=== PATIENT | female | born 1955 | race Caucasian/White ===

== ENCOUNTER 2016-12-13 10:00 | Observation (INO) | payer OTHER ==
[2016-12-13 10:42] LABS: % IMMATURE GRANULYOCYTES 0.3 % (0.0-1.1); ABSOLUTE IMMATURE GRANULOCYTES 0.02 10^3/uL (0.00-0.10); ADD DIFF? NO; ADD MORPH? NO; ADD SCAN? NO; ATYPICAL LYMPHOCYTE FLAG 10 (0-99); FRAGMENT RBC FLAG 0 (0-99); HEMATOCRIT 45.7 % (38.0-47.0); HEMOGLOBIN 14.8 g/dL (12.6-16.3); LEFT SHIFT FLG 0 (0-99); LIPEMIA HEMOLYSIS FLAG 80 (0-99); MEAN CELL HEMOGLOBIN 28.7 pg (27.9-34.1); MEAN CELL HEMOGLOBIN CONCENTR. 32.4 g/dL (32.4-36.7); MEAN CELL VOLUME 88.6 fL (81.5-99.8); MEAN PLATELET VOLUME 11.4 fL (8.7-11.7); PLATELET CLUMPS FLAG 10 (0-99); PLATELET COUNT 280 10^3/uL (150-400); RED BLOOD CELL COUNT 5.16 10^6/uL (4.18-5.33); RED CELL DISTRIBUTION WIDTH 13.1 % (11.5-15.2)
--- NOTE | 2016-12-13 10:42 | EDPHY ---
H & P Stated Complaint: cp /l arm x 5 days/traveling HPI/ROS: CHIEF COMPLAINT: Chest Pain HISTORY OF PRESENT ILLNESS: Patient complains of left-sided chest pain. This originally started on while traveling to [place]. Radiates into the back of the left arm. He has been colic T but never fully resolved until yesterday. Priw-me-ornnmybx pain. The pain returned this morning and has worsened. Associated with some shortness of breath. No change in her existing lower extremity edema. No lower extremity erythema. He does have a history of PE in 2010. No abdominal urinary complaints. She did have a preceding upper respiratory infection that she describes as a cough, runny nose and congestion. This has nearly resolved but not completely. No fever. She does report a heart catheterization of the past few years with Dr. Mtz. PRIOR CARDIAC WORKUP: 2 years ago. History of long QT syndrome and congestive heart failure. History of recurrent pericarditis REVIEW OF SYSTEMS: Ten systems reviewed and are negative unless otherwise noted in the HPI EXAMINATION: General Appearance: Alert, no distress Head: normocephalic, atraumatic Eyes: Pupils equal and round, no conjunctival pallor or injection ENT, Mouth: Mucous membranes moist Neck: Normal inspection, supple, non-tender Respiratory: Lungs are clear to auscultation Cardiovascular: Regular rate and rhythm Gastrointestinal: Abdomen is soft and nontender Back: non-tender, no bony abnormalities Neurological: A&O, nonfocal, normal gait Skin: Warm and dry, no rash Extremities: Nontender, no pedal edema Psychiatric: Mood and affect normal DIFFERENTIAL DIAGNOSES: Including but not limited to in no particular order: Pericarditis, Acute Chest Pain, ACS, Stable Angina, Pneumonia, PE, duodenitis, gastritis, esophagitis, GERD MDM: 10:45 a.m. Chest pain of nearly 5 days duration. This started while flying to [place]. The pain radiates in the left arm. She has a history of PEs in 2010. She also has a preceding viral illness. I suspect this is more pericarditis then other differential diagnoses. I have ordered CT scan of the chest as this is her preference and with her history I do not feel this is unreasonable. She is in no acute distress. Vital signs are stable. 12:[address] Reed[address] scan of the chest reveals no acute findings. There are chronic changes stable from 2016. Laboratory studies are all within normal limits. No evidence of PE. Negative troponin. Given the patient's duration of symptoms we have ruled her out for acute coronary syndrome. She does have a viral illness that preceded this, suggesting this may be a pericarditis. I have re-evaluated the patient, and she is no acute distress. She reports a history of frequent pericarditis in the past. This does feel the same to her. She is unable to take NSAIDs or colchicine. She also has a history of long QT and congestive heart failure. I will discuss the case with and have the patient evaluated by Dr. Chong. 12:20 p.m. Case discussed with Dr. Chong. He agrees the best scenario for the patient is observation with serial troponins. Patient is agreeable with this plan. 1:00 p.m. I discussed the case with hospitalist. Patient will be admitted to Dr. Velasquez for observation status for serial troponins. She is admitted in stable condition to [facility]. EKG: Interpreted by Dr. Chong SUPERVISION: Patient was evaluated in conjunction with the supervising physician. Please see their note for details. Source: Patient - Personal History Current Tetanus/Diphtheria Vaccine: Yes Tetanus Vaccine Date: 2010 - Medical/Surgical History Hx Asthma: No Hx Chronic Respiratory Disease: No Hx Diabetes: No Hx Cardiac Disease: Yes Hx Renal Disease: Yes Hx Cirrhosis: No Hx Alcoholism: No Hx HIV/AIDS: No Hx Splenectomy or Spleen Trauma: No Other PMH: PROLONGER QT SYNDROME with sympathetic nerve ablation, BILATERAL PE'S , HYSTERECTOMY, CHOLECYSTECTOMY, TONSILLECTOMY, RIGHT Total Knee Replacement - Social History Smoking Status: Never smoked Constitutional: Initial Vital Signs Temperature (C) 97.7 F 12/13/16 10:03 Heart Rate 72 12/13/16 10:03 Respiratory Rate 20 12/13/16 10:03 Blood Pressure 164/87 H 12/13/16 10:03 O2 Sat (%) 95 12/13/16 10:03 O2 Delivery Mode Room Air Allergies/Adverse Reactions: ezetimibe [From Zetia] Allergy (Severe, Verified 12/13/16 10:02) Other-Enter Comments tolmetin sodium [From Tolectin] Allergy (Severe, Verified 12/13/16 10:02) clindamycin Allergy (Intermediate, Verified 12/13/16 10:02) Hives latex Allergy (Intermediate, Verified 12/13/16 10:02) Itching naproxen [From Naprosyn] Allergy (Intermediate, Verified 12/13/16 10:02) Other-Enter Comments niacin Allergy (Intermediate, Verified 12/13/16 10:02) Rash Penicillins Allergy (Intermediate, Verified 12/13/16 10:02) Rash Mppkfbn-Hxc-Jwj Reductase Inhibitor Allergy (Intermediate, Verified 12/13/16 10: 02) Other-Enter Comments cefaclor [From Ceclor] Allergy (Mild, Verified 12/13/16 10:02) Rash hydrocodone bitartrate [From Vicodin] Allergy (Mild, Verified 12/13/16 10:02) Rash indomethacin [From Indocin] Allergy (Mild, Verified 12/13/16 10:02) Other-Enter Comments indomethacin sodium [From Indocin] Allergy (Mild, Verified 12/13/16 10:02) Other-Enter Comments levofloxacin [From Levaquin] Allergy (Mild, Verified 12/13/16 10:02) Itching plastic tape Allergy (Mild, Uncoded 10/07/14 07:34) Rash Home Medications: Medication Instructions Recorded Docusate Sodium [Colace 100 MG (*)] 100 mg PO DAILY 12/18/12 ESOMEPRAZOLE MAG TRIHYDRATE 40 mg PO DAILY 12/18/12 [NEXIUM] Levothyroxine [Synthroid 100 mcg 100 mcg PO DAILY06 12/18/12 (*)] Valsartan [Diovan (*)] 80 mg PO DAILY 12/18/12 HYDROmorphone HCL [Dilaudid 2 mg 2 mg PO Q4-6PRN PRN 10/28/13 (*)] Spironolactone [Aldactone] 50 mg PO DAILY 10/28/13 valACYclovir [Valtrex (*)] 1,000 mg PO DAILY 09/29/14 Aspirin [Aspirin 81mg (*)] 81 mg PO DAILY 11/25/14 Furosemide [Lasix 40 MG (*)] 40 mg PO DAILY 12/31/15 Furosemide [Lasix 40 MG (*)] 40 mg PO MWF@21 04/01/16 Herbals/Supplements -Info Only 1 ea PO DAILY 04/01/16 Medical Decision Making - Diagnostics Imaging Results: Imaging Impressions Chest/Thorax CTA 12/13/16 10:42 Impression: 1. No visible pulmonary embolus. 2. Mild cardiomegaly and coronary artery atherosclerosis. 3. Stable benign 6 mm right lung nodule. 4. Additional findings as above. Findings discussed with Jackson Jimenez PA-C on December 13, 2016 at 12:10 p.m. - Data Points Laboratory Results: Laboratory Results 12/13/16 10:31 12/13/16 10:31 12/13/16 12/13/16 12/13/16 10:31 10:31 10:31 WBC 5.84 10^3/uL 10^3/uL (3.80-9.50) RBC 5.16 10^6/uL 10^6/uL (4.18-5.33) Hgb 14.8 g/dL g/dL (12.6-16.3) Hct 45.7 % % (38.0-47.0) MCV 88.6 fL fL (81.5-99.8) MCH 28.7 pg pg (27.9-34.1) MCHC 32.4 g/dL g/dL (32.4-36.7) RDW 13.1 % % (11.5-15.2) Plt Count 280 10^3/uL 10^3/uL (150-400) MPV 11.4 fL fL (8.7-11.7) Neut % (Auto) 56.6 % % (39.3-74.2) Lymph % (Auto) 33.0 % % (15.0-45.0) Gregory % (Auto) 7.5 % % (4.5-13.0) Eos % (Auto) 1.9 % % (0.6-7.6) Baso % (Auto) 0.7 % % (0.3-1.7) Nucleat RBC Rel Count 0.0 % % (0.0-0.2) Absolute Neuts (auto) 3.30 10^3/uL 10^3/uL (1.70-6.50) Absolute Lymphs (auto) 1.93 10^3/uL 10^3/uL (1.00-3.00) Absolute Monos (auto) 0.44 10^3/uL 10^3/uL (0.30-0.80) Absolute Eos (auto) 0.11 10^3/uL 10^3/uL (0.03-0.40) Absolute Basos (auto) 0.04 10^3/uL 10^3/uL (0.02-0.10) Absolute Nucleated RBC 0.00 10^3/uL 10^3/uL (0-0.01) Immature Gran % 0.3 % % (0.0-1.1) Immature Gran # 0.02 10^3/uL 10^3/uL (0.00-0.10) PT 12.7 SEC SEC (12.0-15.0) INR 0.96 (0.83-1.16) APTT 30.3 SEC SEC (23.0-38.0) Sodium 139 mEq/L mEq/L (134-144) Potassium 4.3 mEq/L mEq/L (3.5-5.2) Chloride 103 mEq/L mEq/L (97-110) Carbon Dioxide 25 mEq/l mEq/l (22-31) Anion Gap 11 mEq/L mEq/L (8-16) BUN 15 mg/dL mg/dL (7-23) Creatinine 0.7 mg/dL mg/dL (0.6-1.0) Estimated GFR > 60 Glucose 120 mg/dL H mg/dL (70-100) Calcium 9.6 mg/dL mg/dL (8.5-10.4) Total Bilirubin 1.0 mg/dL mg/dL (0.1-1.4) Conjugated Bilirubin 0.4 mg/dL mg/dL (0.0-0.5) Unconjugated Bilirubin 0.6 mg/dL mg/dL (0.0-1.1) AST 45 IU/L IU/L (14-46) ALT 59 IU/L H IU/L (9-52) Alkaline Phosphatase 111 IU/L IU/L (38-126) Troponin I < 0.012 ng/mL ng/mL (0-0.034) NT-Pro-B Natriuret Pep 86 pg/mL pg/mL (0-125) Total Protein 7.3 g/dL g/dL (6.3-8.2) Albumin 4.5 g/dL g/dL (3.5-5.0) Lipase 56.0 IU/L IU/L (23-300) Medications Given: Discontinued Medications Aspirin (Aspirin) 324 mg PO EDNOW ONE Stop: 12/13/16 10:45 Last Admin: 12/13/16 10:53 Dose: 324 mg Departure - Departure Disposition: [facility] Inpatient Acute Clinical Impression: Acute chest pain Condition: Good
[2016-12-13] MEDS ORDERED: ASPIRIN 81 MG CHEWABLE TAB PO ONE (10:44)
[2016-12-13 10:54] LABS: INR 0.96 (0.83-1.16); PROTIME(PATIENT) 12.7 SEC (12.0-15.0)
[2016-12-13 10:55] LABS: APTT 30.3 SEC (23.0-38.0)
[2016-12-13 11:11] LABS: ALANINE AMINOTRANSFERASE 59 IU/L (9-52); ALBUMIN 4.5 g/dL (3.5-5.0); ALKALINE PHOSPHATASE 111 IU/L (38-126); ANION GAP 11 mEq/L (8-16); ASPARTATE AMINOTRANSFERASE 45 IU/L (14-46); BILIRUBIN-CONJUGATED 0.4 mg/dL (0.0-0.5); BILIRUBIN-UNCONJUGATED 0.6 mg/dL (0.0-1.1); CALCIUM 9.6 mg/dL (8.5-10.4); CARBON DIOXIDE 25 mEq/l (22-31); CHLORIDE 103 mEq/L (97-110); CREATININE 0.7 mg/dL (0.6-1.0); GLOMERULAR FILTRATION RATE > 60; GLUCOSE 120 mg/dL (70-100); POTASSIUM 4.3 mEq/L (3.5-5.2); SODIUM 139 mEq/L (134-144); TOTAL PROTEIN 7.3 g/dL (6.3-8.2)
[2016-12-13 11:17] LABS: TROPONIN I < 0.012 ng/mL (0-0.034)
[2016-12-13] MEDS ORDERED: IOPAMIDOL (ISOVUE 370) 100 ML BTL IV ONE (11:26)
--- NOTE | 2016-12-13 12:24 | CPEKG ---
Heart Rate: 63 RR Interval: 952 P-R Interval: 176 QRSD Interval: 86 QT Interval: 480 QTC Interval: 492 P [place]: 50 QRS [place]: 21 T Wave [place]: 1 EKG Severity - ABNORMAL ECG - EKG Impression: SINUS RHYTHM EKG Impression: LEFT ATRIAL ABNORMALITY EKG Impression: BORDERLINE PROLONGED QT INTERVAL Electronically Signed By: Jose Chong 13-Dec-2016 12:24:39
[2016-12-13] MEDS ORDERED: KETOROLAC 30 MG/1 ML SDV IVP ONE (14:16)
[2016-12-13] MEDS ORDERED: HYDROmorphONE/DILAUDID 2 MG TAB PO PRN (14:23)
--- NOTE | 2016-12-13 15:04 | GHP ---
[f rep st] HISTORY AND PHYSICAL DATE OF ADMISSION: 12/13/2016 CHIEF COMPLAINT: Chest pain. HISTORY OF PRESENT ILLNESS: This is a 61-year-old female who presents with chest pain. This starte d about 4 or 5 days ago while she was visiting her son in [place], described as dull, aching, with occasionally a sharp sensation. This is not positional. Not worse when she leans forward. Not ex ertional. Not relieved by rest. She has a history of pericarditis. She thinks that this is simila r. She underwent a nuclear stress test less than a year ago which was negative. This was done as a n outpatient. She had a cardiac catheterization in 2013, which showed no significant coronary arter y disease. She has a history of long QT syndrome, which was treated with a sympathomimectomy. PAST MEDICAL HISTORY: 1. Prolonged QT syndrome status post sympathomimectomy. 2. Pulmonary embolism after knee surgery in 2010. 3. Pleural effusion status post VATS. 4. Migraine headaches. 5. Hypertension. 6. Recurrent HSV, meningitis and pericarditis. 7. Hypothyroid. 8. GERD. 9. Hyperlipidemia. 10. Obesity. PAST SURGICAL HISTORY: 1. Hysterectomy. 2. Cholecystectomy. MEDICATIONS: Please see medication reconciliation. ALLERGIES: These include ezetimibe, Tolectin, clindamycin, latex, naproxen, niacin, penicillins, st atins, Ceclor, Vicodin, Indocin, Levaquin and plastic tape. FAMILY HISTORY: Mother and father have coronary artery disease. Her brother has acute leukemia. SOCIAL HISTORY: She occasionally drinks. She has been traveling a lot. She has been under lot of stress given her brother's new diagnosis of leukemia. REVIEW OF SYSTEMS: A 10-point review of systems is conducted and is negative, except per HPI. PHYSICAL EXAMINATION: VITAL SIGNS: Blood pressure 131/77, heart rate is 58, respiration rate 16, s aturation 95% on room air, temperature is 36.8. GENERAL: The patient is a very pleasant female who is resting comfortably, in no acute distress. HEENT: Shows her to be normocephalic, atraumatic. CARDIOVASCULAR: Regular rate and rhythm. No murmurs, rubs, or gallops. PULMONARY: Lungs clear to auscultation bilaterally. She is in no respiratory distress. ABDOMEN: Soft. She is mildly tende r to palpation in the epigastrium. Otherwise, there is no hepatosplenomegaly appreciated. SKIN: N o rash. : No Quintero. NEUROLOGIC: Shows her to be alert and oriented x3. She is moving all extr emities. PSYCHIATRIC: Shows normal mood and affect. LABS: CBC is normal. INR 0.96. Basic metabolic panel is normal. ALT is mildly elevated at 59. I nitial troponin is negative. DATA: 1. I discussed this with Dr. Nash. He will consult. 2. I reviewed her chest and thorax CT angiogram. This shows no PE. It does show mild cardiomegaly and coronary artery atherosclerosis. She has a stable benign 6 mm right lung nodule. 3. EKG, which I personally reviewed and interpreted, shows borderline long QT. There is nothing ac makah here. IMPRESSION AND PLAN: A 61-year-old female who presents with chest pain. 1. Chest pain, atypical for cardiac. Consider pericarditis. She has no PE. I discussed with Dr. Nash, who will consult. Will give her a trial of 1 dose of Toradol to see if this relieves her pa in for diagnostic purposes. Will trend her troponins. 2. History of long QT. Will watch for QT prolonging medications. 3. Hypertension. Continue her antihypertensives. 4. History of herpes simplex virus. She is currently on Valtrex. 5. Lower extremity edema. Will continue her Lasix. /[id number]/MODL
--- NOTE | 2016-12-13 15:54 | CPEKG ---
Heart Rate: 61 RR Interval: 984 P-R Interval: 180 QRSD Interval: 92 QT Interval: 496 QTC Interval: 500 P [place]: 42 QRS [place]: 23 T Wave [place]: -11 EKG Severity - NORMAL ECG - EKG Impression: SINUS RHYTHM EKG Impression: PROLONGED QT INTERVAL EKG Impression: LEFT ATRIAL ENLARGEMENT Electronically Signed By: Juan Carlos Amaya 14-Dec-2016 08:36:30
[2016-12-13] MEDS: HYDROmorphONE/DILAUDID 2 MG TAB PO PRN ×2 (17:30→21:27)
--- NOTE | 2016-12-13 20:05 | PDCARCONS ---
Cardiology Consult Reason for Consult: chest discomfort, history of pericarditis, history of long QT Chief Complaint: chest discomfort Requesting Physician: Dr. Velasquez History of Present Illness: HPI: Helga is a 61 year old woman with a history of prolonged QT s/p sympathectomy, hypertension, pericarditis, GERD, hyperlipidemia, obstructive sleep apnea on CPAP and obesity. She presented to the emergency department with centralized chest pain described as a dull/achy type pain that is 4/10 in severity. This started 4-5 days ago while on a trip to [place] and was 9/10 in severity at its worst. The patient also admits an occasional "quiver" type sensation in her chest that intensifies the chest discomfort. The chest discomfort is not associated with exertion (she rides a stationary bike and has not noticed chest discomfort with exertion) and is not positional. The patient denies shortness of breath, leg-swelling, syncope, near-syncope or other cardiac symptoms. She is currently still experiencing 4/10 chest discomfort that has not significantly improved with IV Toradol ("it helped a little"). Assessment/Plan: 1. Chest pain as described above, partially relieved with IV Toradol. Her resting EKG revealed normal sinus rhythm with borderline prolonged QT. Cardiac catheterization in 2013 did not reveal significant flow-limiting coronary artery disease with normal arteries. It is unlikely her chest discomfort is related to ischemia given the cath results in 2014 and her normal resting EKG as well as the negative troponin which we will continue to trend. The patient does have coronary artery disease on the basis of the CT pulmonary angiogram, but denies treatment with statin therapy or aspirin given her adverse reaction to NSAIDs. She has a history of pericarditis as a young woman and was treated with steroids , which makes the likelihood of relapsing pericarditis more likely. Options for her present treatment include Colchicine BID or a short high-dose Prednisone, neither of which is known to prolong the QT interval. When I mentioned these possibilities to presumptively treat her for pericarditis, the patient was somewhat reticent as she believe they prolong the QT. I checked with pharmacy and they do not. For now I believe we should continue treat her pain with opiate analgesia. At the present I do not believe she needs further cardiac testing. Thanks for the consult we will continue to follow. History Information - Allergies/Home Medication List Allergies/Adverse Reactions: ezetimibe [From Zetia] Allergy (Severe, Verified 04/18/17 10:02) Other-Enter Comments tolmetin sodium [From Tolectin] Allergy (Severe, Verified 12/13/16 10:02) clindamycin Allergy (Intermediate, Verified 12/13/16 10:02) Hives latex Allergy (Intermediate, Verified 12/13/16 10:02) Itching naproxen [From Naprosyn] Allergy (Intermediate, Verified 12/13/16 10:02) Other-Enter Comments niacin Allergy (Intermediate, Verified 12/13/16 10:02) Rash Penicillins Allergy (Intermediate, Verified 12/13/16 10:02) Rash Ogptvoe-Edr-Zgv Reductase Inhibitor Allergy (Intermediate, Verified 12/13/16 10: 02) Other-Enter Comments cefaclor [From Ceclor] Allergy (Mild, Verified 12/13/16 10:02) Rash hydrocodone bitartrate [From Vicodin] Allergy (Mild, Verified 12/13/16 10:02) Rash indomethacin [From Indocin] Allergy (Mild, Verified 12/13/16 10:02) Other-Enter Comments indomethacin sodium [From Indocin] Allergy (Mild, Verified 12/13/16 10:02) Other-Enter Comments levofloxacin [From Levaquin] Allergy (Mild, Verified 12/13/16 10:02) Itching plastic tape Allergy (Mild, Uncoded 10/07/14 07:34) Rash Home Medications: Docusate Sodium [Colace 100 MG (*)] 100 mg PO DAILY 12/18/12 [Last Taken ] ESOMEPRAZOLE MAG TRIHYDRATE [NEXIUM] 40 mg PO DAILY 12/18/12 [Last Taken ] Levothyroxine [Synthroid 100 mcg (*)] 100 mcg PO DAILY06 12/18/12 [Last Taken ] Valsartan [Diovan (*)] 80 mg PO DAILY 12/18/12 [Last Taken 12/12/16] HYDROmorphone HCL [Dilaudid 2 mg (*)] 2 mg PO Q4-6PRN PRN 10/28/13 [Last Taken 11/25/14] Spironolactone [Aldactone] 50 mg PO DAILY 10/28/13 [Last Taken 12/12/16] valACYclovir [Valtrex (*)] 1,000 mg PO DAILY 09/29/14 [Last Taken 12/12/16] Aspirin [Aspirin 81mg (*)] 81 mg PO DAILY 11/25/14 [Last Taken 12/12/16] Furosemide [Lasix 40 MG (*)] 40 mg PO DAILY 12/31/15 [Last Taken 12/12/16] Furosemide [Lasix 40 MG (*)] 40 mg PO MWF@21 04/01/16 [Last Taken 12/12/16] Herbals/Supplements -Info Only 1 ea PO DAILY 04/01/16 [Last Taken 12/12/16] I have personally reviewed and updated: family history, medical history, social history - Past Medical History coronary artery disease, CHF, hypertension, hyperlipidemia - Family History Positive for: CAD - Social History Smoking Status: Never smoked Cardiac History - Cardiac History Past Cardiac History: CAD Cardiac Risk Factors: hypertension (>140/90), lipidemia Timing/Duration: Days Severity: moderate Severity Scale: 4 Location: substernal Activities at Onset: rest Physical Exam Temp Pulse Resp BP Pulse Ox 36.6 C 58 L 18 147/100 H 95 12/13/16 14:50 12/13/16 14:50 12/13/16 14:50 12/13/16 14:50 12/13/16 13:58 O2 (L/minute) 92 Constitutional: appears nourished, obese Ears, Nose, Mouth, Throat: moist mucous membranes Cardiovascular: regular rate and rhythym, no murmur, rub, or gallop Peripheral Pulses: 2+: femoral (R), femoral (L) Respiratory: no respiratory distress Gastrointestinal: normoactive bowel sounds Skin: warm, normal color Neurologic: sensation intact bilaterally Psychiatric: interacting appropriately, not anxious Lymph, Heme, Immunologic: no cervical LAD Lab and Imaging 12/13/16 10:31 12/13/16 10:31 WBC 5.84 10^3/uL (3.80-9.50) 12/13/16 10:31 RBC 5.16 10^6/uL (4.18-5.33) 12/13/16 10:31 Hgb 14.8 g/dL (12.6-16.3) 12/13/16 10:31 Hct 45.7 % (38.0-47.0) 12/13/16 10:31 MCV 88.6 fL (81.5-99.8) 12/13/16 10:31 MCH 28.7 pg (27.9-34.1) 12/13/16 10:31 MCHC 32.4 g/dL (32.4-36.7) 12/13/16 10:31 RDW 13.1 % (11.5-15.2) 12/13/16 10:31 Plt Count 280 10^3/uL (150-400) 12/13/16 10:31 MPV 11.4 fL (8.7-11.7) 12/13/16 10:31 Neut % (Auto) 56.6 % (39.3-74.2) 12/13/16 10:31 Lymph % (Auto) 33.0 % (15.0-45.0) 12/13/16 10:31 Parmer % (Auto) 7.5 % (4.5-13.0) 12/13/16 10:31 Eos % (Auto) 1.9 % (0.6-7.6) 12/13/16 10:31 Baso % (Auto) 0.7 % (0.3-1.7) 12/13/16 10:31 Nucleat RBC Rel Count 0.0 % (0.0-0.2) 12/13/16 10:31 Absolute Neuts (auto) 3.30 10^3/uL (1.70-6.50) 12/13/16 10:31 Absolute Lymphs (auto) 1.93 10^3/uL (1.00-3.00) 12/13/16 10:31 Absolute Monos (auto) 0.44 10^3/uL (0.30-0.80) 12/13/16 10:31 Absolute Eos (auto) 0.11 10^3/uL (0.03-0.40) 12/13/16 10:31 Absolute Basos (auto) 0.04 10^3/uL (0.02-0.10) 12/13/16 10:31 Absolute Nucleated RBC 0.00 10^3/uL (0-0.01) 12/13/16 10:31 Immature Gran % 0.3 % (0.0-1.1) 12/13/16 10:31 Immature Gran # 0.02 10^3/uL (0.00-0.10) 12/13/16 10:31 PT 12.7 SEC (12.0-15.0) 12/13/16 10:31 INR 0.96 (0.83-1.16) 12/13/16 10:31 APTT 30.3 SEC (23.0-38.0) 12/13/16 10:31 Sodium 139 mEq/L (134-144) 12/13/16 10:31 Potassium 4.3 mEq/L (3.5-5.2) 12/13/16 10:31 Chloride 103 mEq/L (97-110) 12/13/16 10:31 Carbon Dioxide 25 mEq/l (22-31) 12/13/16 10:31 Anion Gap 11 mEq/L (8-16) 12/13/16 10:31 BUN 15 mg/dL (7-23) 12/13/16 10:31 Creatinine 0.7 mg/dL (0.6-1.0) 12/13/16 10:31 Estimated GFR > 60 12/13/16 10:31 Glucose 120 mg/dL (70-100) H 12/13/16 10:31 Calcium 9.6 mg/dL (8.5-10.4) 12/13/16 10:31 Total Bilirubin 1.0 mg/dL (0.1-1.4) 12/13/16 10:31 Conjugated Bilirubin 0.4 mg/dL (0.0-0.5) 12/13/16 10:31 Unconjugated Bilirubin 0.6 mg/dL (0.0-1.1) 12/13/16 10:31 AST 45 IU/L (14-46) 12/13/16 10:31 ALT 59 IU/L (9-52) H 12/13/16 10:31 Alkaline Phosphatase 111 IU/L (38-126) 12/13/16 10:31 Troponin I < 0.012 ng/mL (0-0.034) 12/13/16 10:31 NT-Pro-B Natriuret Pep 86 pg/mL (0-125) 12/13/16 10:31 Total Protein 7.3 g/dL (6.3-8.2) 12/13/16 10:31 Albumin 4.5 g/dL (3.5-5.0) 12/13/16 10:31 Lipase 56.0 IU/L (23-300) 12/13/16 10:31 Visualized and Interpreted EKG results: Yes EKG Interpretation: Positive for: normal sinsus rhythm, other (borderline prolonged QT)
[2016-12-13] MEDS: PANTOPRAZOLE SODIUM 40 MG TAB PO SCH (20:51)
[2016-12-14] MEDS ORDERED: LEVOTHYROXINE 100 MCG TAB PO SCH (06:00)
[2016-12-14] MEDS: PANTOPRAZOLE SODIUM 40 MG TAB PO SCH (07:46)
[2016-12-14 07:48] VITALS: BP 131/79
[2016-12-14 07:50] VITALS: PULSE 57; RESP 17; TEMP 98.1; O2SAT 95
[2016-12-14] MEDS ORDERED: NON-FORMULARY NEW DRUG (Esomeprazole Mag Trihydrate [Nexium] 40 MG) PO SCH (09:00)
[2016-12-14] MEDS ORDERED: DOCUSATE SODIUM 100 MG CAP PO SCH (09:00)
[2016-12-14] MEDS ORDERED: SPIRONOLACTONE 50 MG TAB PO SCH (09:00)
[2016-12-14] MEDS ORDERED: VALSARTAN 80 MG TAB PO SCH (09:00)
[2016-12-14] MEDS ORDERED: valACYclovir 500 MG TAB PO SCH (09:00)
[2016-12-14] MEDS ORDERED: ASPIRIN 81 MG CHEWABLE TAB PO SCH (09:00)
[2016-12-14] MEDS ORDERED: FUROSEMIDE 40 MG TAB PO SCH ×2 (09:00→21:00)
[2016-12-14] MEDS ORDERED: ACETAMINOPHEN 325 MG TAB PO ONE (14:00)
--- NOTE | 2016-12-14 16:24 | GDS ---
[f rep st] DISCHARGE SUMMARY ALL DIAGNOSES: 1. Chest pain. 2. History of prolonged QT interval. 3. Hypertension. 4. History of herpes simplex virus. 5. Lower extremity edema. 6. History of a pulmonary embolus. HOSPITAL COURSE: A 61-year-old female admitted with about 5 days of chest pain. CT angiogram showe d no PE. EKG was unchanged and nonischemic. Troponins were negative. She was seen by Cardiology w ho felt that this is most likely related to pericarditis. Did not feel that any additional coronary artery workup was indicated as she had a negative stress less than a year ago and an unremarkable c atheterization in 2013. I have recommended that we start her on colchicine versus prednisone. She has had multiple reactions to medications in the past, and she would like to try one at a time. She also notably does have a history of pericarditis. I have recommended that she try colchicine first , if she cannot tolerate that, then she will try prednisone. I have given her prescriptions for bot h of these medicines. I have confirmed with pharmacy that these do not prolong her QT interval. Felipe samaniego is discharged in stable condition with these medications. She will follow up with either Dr. Mtz , her primary labeling strategist, or somebody else in Dr. Mtz's office. /[id number]/MODL
== END 2016-12-14 15:40 | disposition home or self-care (01) ==
LOC: F1N 14:11
PROVIDERS: ADMIT Student in an Organized Health Care Education/Training Program; ATTEND Student in an Organized Health Care Education/Training Program
DX: R07.9 Chest pain, unspecified (principal); I10 Essential (primary) hypertension; I25.10 Atherosclerotic heart disease of native coronary artery without angina pectoris; Z86.79 Personal history of other diseases of the circulatory system; E78.5 Hyperlipidemia, unspecified; Z82.49 Family history of ischemic heart disease and other diseases of the circulatory system; R60.0 Localized edema; Z86.711 Personal history of pulmonary embolism; J98.8 Other specified respiratory disorders; R91.1 Solitary pulmonary nodule; E03.9 Hypothyroidism, unspecified; Z96.651 Presence of right artificial knee joint
CPT/HCPCS: 71275; 93005; 99285; G0378; J1885; Q9967

== ENCOUNTER → 2017-01-16 | Outpatient (CLI) | payer OTHER | LOC: BRMIMAGING 14:55 | PROVIDERS: ATTEND Internal Medicine | DX: Z12.31 Encounter for screening mammogram for malignant neoplasm of breast (principal) | CPT/HCPCS: G0202 ==

== ENCOUNTER 2017-08-27 18:58 | Observation (INO) | payer OTHER ==
--- NOTE | 2017-08-27 19:12 | CPEKG ---
Heart Rate: 82 RR Interval: 732 P-R Interval: 172 QRSD Interval: 88 QT Interval: 412 QTC Interval: 482 P [place]: 53 QRS [place]: 44 T Wave [place]: 11 EKG Severity - BORDERLINE ECG - EKG Impression: SINUS RHYTHM EKG Impression: PROBABLE LEFT ATRIAL ABNORMALITY Electronically Signed By: Yves Barrera 28-Aug-2017 10:35:30
--- NOTE | 2017-08-27 19:15 | EDPHY ---
HPI/HX/ROS/PE/MDM Narrative: Portions of this note were transcribed by a bacteriologist medical. I personally performed a history, physical exam, medical decision making, and confirmed accuracy of information the transcribed note. CHIEF COMPLAINT: HISTORY OF PRESENT ILLNESS: [Location, Duration, Severity, Quality, Context, Timing Modifying Factors, Associated S&S] This patient is a 62 year old female complaining of shortness of breath and left -sided chest pain gradually worsening over the last two days. SOB at rest, not meaningfully worse with exertion. Chest pain began yesterday. No cough or fever. SOB, worsening today. Left chest pain. Right calf pain onset three days ago, intermittent. Did not note swelling. Had denervation so noted warmth but attributed to that. Takes daily aspirin. Bilateral PE seven years ago following arthroscopic knee surgery, formerly on Warfarin. D/c 3.5 years after onset. SOB worse this evening. Travels frequently for work. Two weeks ago, GI illness. 8lb weight loss. Two weeks before that respiratory illness. Has felt generally fatigued. Arthralgia. REVIEW OF SYSTEMS: A 10 point review of systems was performed and is negative with the exception of the elements mentioned in the history of present illness. Adult Physical General Appearance: Alert, pleasant Eyes: Pupils equal and round, no conjunctival pallor or injection ENT, Mouth: Mucous membranes moist Neck: Normal inspection Respiratory: Lungs are clear to auscultation Cardiovascular: Regular rate and rhythm Gastrointestinal: Abdomen is soft and non-tender Neurological: A&O, nonfocal exam Skin: Warm and dry, no rash Extremities: Nontender, no pedal edema Psychiatric: Mood and affect normal General Time Seen by Provider: 08/27/17 19:07 Initial Vital Signs: Initial Vital Signs Heart Rate 84 08/27/17 19:04 Respiratory Rate 18 08/27/17 19:04 Blood Pressure 159/72 H 08/27/17 19:04 O2 Sat (%) 98 08/27/17 19:04 O2 Delivery Mode Room Air Allergies/Adverse Reactions: ezetimibe [From Zetia] Allergy (Severe, Verified 08/27/17 19:01) Other-Enter Comments tolmetin sodium [From Tolectin] Allergy (Severe, Verified 08/27/17 19:01) clindamycin Allergy (Intermediate, Verified 08/27/17 19:01) Hives latex Allergy (Intermediate, Verified 08/27/17 19:01) Itching naproxen [From Naprosyn] Allergy (Intermediate, Verified 08/27/17 19:01) Other-Enter Comments niacin Allergy (Intermediate, Verified 08/27/17 19:01) Rash Penicillins Allergy (Intermediate, Verified 08/27/17 19:01) Rash Irpiocw-Boi-Ksl Reductase Inhibitor Allergy (Intermediate, Verified 08/27/17 19: 01) Other-Enter Comments cefaclor [From Ceclor] Allergy (Mild, Verified 08/27/17 19:01) Rash hydrocodone bitartrate [From Vicodin] Allergy (Mild, Verified 08/27/17 19:01) Rash indomethacin [From Indocin] Allergy (Mild, Verified 08/27/17 19:01) Other-Enter Comments indomethacin sodium [From Indocin] Allergy (Mild, Verified 08/27/17 19:01) Other-Enter Comments levofloxacin [From Levaquin] Allergy (Mild, Verified 08/27/17 19:01) Itching plastic tape Allergy (Mild, Uncoded 08/27/17 19:01) Rash Home Medications: Medication Instructions Recorded Docusate Sodium [Colace 100 MG (*)] 100 mg PO DAILY 12/18/12 ESOMEPRAZOLE MAG TRIHYDRATE 40 mg PO DAILY 12/18/12 [NEXIUM] Levothyroxine [Synthroid 100 mcg 100 mcg PO DAILY06 12/18/12 (*)] Valsartan [Diovan (*)] 80 mg PO DAILY 12/18/12 Spironolactone [Aldactone] 50 mg PO DAILY 10/28/13 valACYclovir [Valtrex (*)] 1,000 mg PO DAILY 09/29/14 Aspirin [Aspirin 81mg (*)] 81 mg PO DAILY 11/25/14 Furosemide [Lasix 40 MG (*)] 40 mg PO DAILY 12/31/15 Furosemide [Lasix 40 MG (*)] 40 mg PO MWF@21 04/01/16 Herbals/Supplements -Info Only 1 ea PO DAILY 04/01/16 Metformin HCl 08/27/17 Departure - Departure Referrals: Lissett Barrera MD [Primary Care Provider] - As per Instructions
--- NOTE | 2017-08-27 19:17 | EDPHY ---
H & P Time Seen by Provider: 08/27/17 19:07 HPI/ROS: CHIEF COMPLAINT: Shortness of breath, chest pain HISTORY OF PRESENT ILLNESS: This patient is an obese 62 year old female with history of hypertension, CAD and pulmonary embolism complaining of shortness of breath and left-sided chest pain gradually worsening over the last two days. Three days ago, she developed intermittent right calf pain. She noted some warmth compared to her left leg but no swelling, and attributed the comparative warmth to a prior denervation. Two days ago, she noted gradually worsening shortness of breath, and yesterday she developed left-sided chest pain. These symptoms became much worse 2-3 hrs ago. She feels short of breath at rest and this does not seem increased with exertion. She has history of bilateral PE seven years ago following arthroscopic knee surgery, formerly on Warfarin. She discontinued Coumadin three years ago but continues to take ASA 81 mg daily. h/o CAD, takes an ASA daily, pattern technician Dr. Mtz. The patient has had recent GI and upper respiratory illness, and endorses increased fatigue and arthralgias for the past month. She denies current cough or fever. No vomiting, diarrhea, urinary complaints, weakness or paresthesias, or other associated symptoms. REVIEW OF SYSTEMS: A 10 point review of systems was performed and is negative with the exception of the elements mentioned in the history of present illness. Past Medical/Surgical History: 1. Prolonged QT syndrome s/p sympathomimectomy 2. Pulmonary embolism following knee arthroscopy (2010) 3. Pleural effusion s/p VATS 4. Migraines 5. Hypertension 6. Recurrent HSV, meningitis, pericarditis 7. Hypothyroid 8. GERD 9. Hyperlipidemia 10. Obesity 11. Hysterectomy 12. Cholecystectomy Social History: Travels frequently. Nonsmoker. Lives in [place]. Smoking Status: Never smoked Physical Exam: General Appearance: Alert, obese, pleasant Eyes: Pupils equal and round, no conjunctival pallor or injection ENT, Mouth: Mucous membranes moist Neck: Normal inspection Respiratory: Lungs are clear to auscultation Cardiovascular: Regular rate and rhythm Gastrointestinal: Abdomen is soft and non-tender Neurological: A&O, nonfocal exam Skin: Warm and dry, no rash Extremities: Nontender, no pedal edema Psychiatric: Mood and affect normal Constitutional: Initial Vital Signs Heart Rate 84 08/27/17 19:04 Respiratory Rate 18 08/27/17 19:04 Blood Pressure 159/72 H 08/27/17 19:04 O2 Sat (%) 98 08/27/17 19:04 O2 Delivery Mode Room Air Allergies/Adverse Reactions: ezetimibe [From Zetia] Allergy (Severe, Verified 08/29/17 14:53) Other-Enter Comments tolmetin sodium [From Tolectin] Allergy (Severe, Verified 08/29/17 14:53) clindamycin Allergy (Intermediate, Verified 08/29/17 14:53) Hives colchicine Allergy (Intermediate, Verified 08/29/17 14:53) GI UPSET latex Allergy (Intermediate, Verified 08/29/17 14:53) Itching naproxen [From Naprosyn] Allergy (Intermediate, Verified 08/29/17 14:53) Other-Enter Comments niacin Allergy (Intermediate, Verified 08/29/17 14:53) Rash Penicillins Allergy (Intermediate, Verified 08/29/17 14:53) Rash Heostxu-Jia-Nqk Reductase Inhibitor Allergy (Intermediate, Verified 08/29/17 14: 53) Other-Enter Comments cefaclor [From Ceclor] Allergy (Mild, Verified 08/29/17 14:53) Rash hydrocodone bitartrate [From Vicodin] Allergy (Mild, Verified 08/29/17 14:53) Rash indomethacin [From Indocin] Allergy (Mild, Verified 08/29/17 14:53) Other-Enter Comments indomethacin sodium [From Indocin] Allergy (Mild, Verified 08/29/17 14:53) Other-Enter Comments levofloxacin [From Levaquin] Allergy (Mild, Verified 08/29/17 14:53) Itching plastic tape Allergy (Mild, Uncoded 08/27/17 19:01) Rash Home Medications: Medication Instructions Recorded Docusate Sodium [Colace 100 MG (*)] 100 mg PO DAILY 12/18/12 ESOMEPRAZOLE MAG TRIHYDRATE 40 mg PO DAILY 12/18/12 [NEXIUM] Levothyroxine [Synthroid 100 mcg 100 mcg PO DAILY06 12/18/12 (*)] Valsartan [Diovan (*)] 80 mg PO DAILY 12/18/12 Spironolactone [Aldactone] 50 mg PO DAILY 10/28/13 valACYclovir [Valtrex (*)] 1,000 mg PO DAILY 09/29/14 Aspirin [Aspirin 81mg (*)] 81 mg PO DAILY 11/25/14 Furosemide [Lasix 40 MG (*)] 40 mg PO DAILY 12/31/15 Herbals/Supplements -Info Only 1 ea PO DAILY 04/01/16 Furosemide [Lasix 40 MG (*)] 40 mg PO MWF@1800 PRN 08/27/17 metFORMIN HCL [Metformin HCl] 500 mg PO BID 08/27/17 celeCOXIB [CeleBREX] 100 - 200 mg PO BID #100 cap 08/28/17 Medical Decision Making - Diagnostics EKG Interpretation: EKG interpreted by me reveals normal sinus rhythm, rate 82, CONSTANTINO, no ST/T changes. Interpretation: normal EKG Repeat EKG interpreted by me reveals normal sinus rhythm, rate 68, CONSTANTINO, no ST or T segment changes. Imaging Results: CT pulmonary angiogram read by the radiologist: No evidence of pulmonary embolism. There is a stable pulmonary nodule and LAD calcification,, similar to prior CT findings. Imaging: Discussed imaging studies w/ scalloper Radiologist ED Course/Re-evaluation: 62 y/o female with history of prior PE presents with two day history of shortness of breath and chest pain. Exam unremarkable. EKG reveals no evidence of ischemia. Symptoms similar to prior pulmonary embolism. Plan for CTA chest to r/o PE, US RLE to r/o DVT. IV established. Plan for labs including CBC, BMP, troponin, BNP. 20:[address] Hare, radiologist. US RLE negative for DVT. 20:[address] Hare, radiologist. CTA chest negative for PE. Noted mild cardiomegaly with LAD and left circumflex coronary artery atherosclerotic calcifications. 8:45 p.m.-CT and ultrasound results discussed with the patient. Specifically, I discussed the findings of coronary artery calcification in the LAD and left circumflex. She is aware of this heart disease and has had a prior nuclear stress test, which was reportedly normal. Given that she has persistent, and now worsened chest pain, at 7/10, I suggested either repeating a troponin in 2 hr or admitting her for observation. Since she lives alone, she is quite worried about returning home, and requests observation in the hospital. I feel this is a reasonable plan, given ongoing chest pain and history of coronary artery disease. Repeat EKG ordered and is unchanged. Differential Diagnosis: Differential diagnosis includes though it is not limited to pneumonia, pneumothorax, pulmonary embolism, aortic dissection, pericarditis, acute coronary syndrome. - Data Points Laboratory Results: Laboratory Results 08/27/17 19:15 08/27/17 19:15 Medications Given: Discontinued Medications Aspirin (Aspirin) 81 mg PO DAILY EVELYNE Stop: 02/24/18 08:59 Last Admin: 08/28/17 08:57 Dose: 81 mg Celecoxib (Celebrex) 100 mg PO BID EVELYNE Stop: 02/24/18 10:44 Last Admin: 08/28/17 11:37 Dose: 100 mg Docusate Sodium (Colace) 100 mg PO DAILY EVELYNE Stop: 02/24/18 08:59 Last Admin: 08/28/17 08:57 Dose: 100 mg Enoxaparin Sodium (Lovenox) 40 mg SC DAILY EVELYNE Stop: 02/24/18 08:59 Last Admin: 08/28/17 08:59 Dose: 40 mg Furosemide (Lasix) 40 mg PO DAILY EVELYNE Stop: 02/24/18 10:59 Last Admin: 08/28/17 11:37 Dose: 40 mg Ketorolac Tromethamine (Toradol) 15 mg IVP ONCE ONE Stop: 08/27/17 23:15 Last Admin: 08/28/17 00:35 Dose: 15 mg Levothyroxine Sodium (Synthroid) 100 mcg PO DAILY06 [facility] Stop: 02/24/18 05:59 Last Admin: 08/28/17 05:49 Dose: 100 mcg Oxycodone/Acetaminophen (Percocet 5/325) 1 - 2 tab PO Q4HRS PRN PRN Reason: Pain, Severe Able to Take PO Stop: 09/06/17 23:13 Last Admin: 08/28/17 05:49 Dose: 1 tab Pantoprazole Sodium (Protonix) 40 mg PO DAILY EVELYNE Stop: 02/24/18 08:59 Last Admin: 08/28/17 08:57 Dose: 40 mg Valacyclovir HCl (Valtrex) 1,000 mg PO DAILY EVELYNE Stop: 09/27/17 08:59 Last Admin: 08/28/17 08:57 Dose: 1,000 mg Valsartan (Diovan) 80 mg PO DAILY EVELYNE Stop: 02/24/18 08:59 Last Admin: 08/28/17 08:57 Dose: 80 mg Departure - Departure Disposition: [facility] Inpatient Acute Clinical Impression: Chest pain Qualifiers: Chest pain type: precordial pain Qualified Code(s): R07.2 - Precordial pain Condition: Fair Report Scribed for: Kenia Jimenez Report Scribed by: Rosalinda Barahona Date of Report: 08/27/17 Time of Report: 19:44 Physician Review and Approval Statement: 08/27/17 19:44 Portions of this note were transcribed by a medical editor. I personally performed a history, physical exam, medical decision making, and confirmed accuracy of information the transcribed note.
[2017-08-27] MEDS ORDERED: IOPAMIDOL (ISOVUE 370) 100 ML BTL IV ONE (19:31)
[2017-08-27 19:40] LABS: PLATELET COUNT 322 10^3/uL (150-400)
--- NOTE | 2017-08-27 21:02 | CPEKG ---
Heart Rate: 68 RR Interval: 882 P-R Interval: 188 QRSD Interval: 94 QT Interval: 472 QTC Interval: 503 P [place]: 66 QRS [place]: 29 T Wave [place]: 0 EKG Severity - BORDERLINE ECG - EKG Impression: SINUS RHYTHM EKG Impression: PROBABLE LEFT ATRIAL ABNORMALITY EKG Impression: BORDERLINE PROLONGED QT INTERVAL Electronically Signed By: Yves Barrera 28-Aug-2017 10:35:39
--- NOTE | 2017-08-27 22:40 | PDGENHP ---
History and Physical - Chief Complaint chest pain - History of Present Illness Source - patient provides history and appears reliable. EMR was also reviewed for today's visit as well as from 11/2016. HPI - Pleasant 62 yo F with pmx significant for nonocclusive CAD with hx cath 2013, HTN, HLD, hypothyroidism, GERD, hx of QT prolongation syndrome s/p sympathicectomy and hx of recurrent pericarditis who presents to the ED today with complaints of persistent left sided chest pain on going x4 days and newer onset of CAT. Patient travels frequently for work across the country. Her chest pain started while she was at rest. her pain is described as constant aching with occasional short liver sharp pain. Patient denies any worsening/ improvement with movement. she thinks this feels difference from her previous episodes of pericarditis which patient reports has had 6 episodes. Patient denies any diaphoresis, nausea/vomiting, no acute worsening of LE edema. PAtient denies any palpitations currently. she had a few episodes last week but did not have any chest pain at that time. Patient with recent viral illnesses in the last several weeks. She initially started with GI symptoms nausea/vomiting/diarrhea that have since resolved. she is recovering from URI sx including cough/rhinorrhea and congestion that are also resolved. Patient denies any pleuritic chest pain. She recently completed a slow taper of steroids for exacerbation of her diffuse joint pain/ OA. History Information - Allergies/Home Medication List Allergies/Adverse Reactions: ezetimibe [From Zetia] Allergy (Severe, Verified 08/27/17 19:01) Other-Enter Comments tolmetin sodium [From Tolectin] Allergy (Severe, Verified 08/27/17 19:01) clindamycin Allergy (Intermediate, Verified 08/27/17 19:01) Hives colchicine Allergy (Intermediate, Verified 08/27/17 23:39) GI UPSET latex Allergy (Intermediate, Verified 08/27/17 19:01) Itching naproxen [From Naprosyn] Allergy (Intermediate, Verified 08/27/17 19:01) Other-Enter Comments niacin Allergy (Intermediate, Verified 08/27/17 19:01) Rash Penicillins Allergy (Intermediate, Verified 08/27/17 19:01) Rash Rpccegn-Jfw-Pbf Reductase Inhibitor Allergy (Intermediate, Verified 08/27/17 19: 01) Other-Enter Comments cefaclor [From Ceclor] Allergy (Mild, Verified 08/27/17 19:01) Rash hydrocodone bitartrate [From Vicodin] Allergy (Mild, Verified 08/27/17 19:01) Rash indomethacin [From Indocin] Allergy (Mild, Verified 08/27/17 19:01) Other-Enter Comments indomethacin sodium [From Indocin] Allergy (Mild, Verified 08/27/17 19:01) Other-Enter Comments levofloxacin [From Levaquin] Allergy (Mild, Verified 08/27/17 19:01) Itching plastic tape Allergy (Mild, Uncoded 08/27/17 19:01) Rash Home Medications: Docusate Sodium [Colace 100 MG (*)] 100 mg PO DAILY 12/18/12 [Last Taken ] ESOMEPRAZOLE MAG TRIHYDRATE [NEXIUM] 40 mg PO DAILY 12/18/12 [Last Taken ] Levothyroxine [Synthroid 100 mcg (*)] 100 mcg PO DAILY06 12/18/12 [Last Taken ] Valsartan [Diovan (*)] 80 mg PO DAILY 12/18/12 [Last Taken 08/27/17] Spironolactone [Aldactone] 50 mg PO DAILY 10/28/13 [Last Taken 08/27/17] valACYclovir [Valtrex (*)] 1,000 mg PO DAILY 09/29/14 [Last Taken 08/27/17] Aspirin [Aspirin 81mg (*)] 81 mg PO DAILY 11/25/14 [Last Taken 08/27/17] Furosemide [Lasix 40 MG (*)] 40 mg PO DAILY 12/31/15 [Last Taken 08/27/17] Herbals/Supplements -Info Only 1 ea PO DAILY 04/01/16 [Last Taken 12/12/16] Furosemide [Lasix 40 MG (*)] 40 mg PO MWF@1800 PRN 08/27/17 [Last Taken 08/20/17 ] metFORMIN HCL [Metformin HCl] 500 mg PO BID 08/27/17 [Last Taken 08/27/17] I have personally reviewed and updated: family history, medical history, social history, surgical history - Past Medical History coronary artery disease (nonocclusive with cath 2013, normal o/p stress with Dr. Mtz), CHF, hypertension, hyperlipidemia Additional medical history: hx pleural effusion s/p VATS. DM II. hypothyroidism. gerd. LENORE on CPAP. morbid obesity (BMI 48.6). QT prolongation syndrome s/p sympathicectomy. PE after knee arthroscopy 2010 no longer on anticoagulation. migrain PAGAN. recurrent HSV on chronic antiviral suppression. hx meningitis. recurrent pericardiis - Surgical History Additional surgical history: hysterectomy. cholecystectomy. VATS. sympathicectomy. knee arthroscopy - Family History Positive for: CAD Additional family history: mother and father - CAD. brother - leukemia - Social History Smoking Status: Never smoked Alcohol Use: Occasionally Drug Use: None Additional social history: Lives alone. 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 travels regularly. COR - FULL. Review of Systems Review of Systems: ROS: 10pt was reviewed & negative except for what was stated in HPI & below Constitutional: Reports: no symptoms, recent illness (2 separate episodes respioratory followed by ) EENMT: Reports: other (wears readers). Denies: blurred vision, nose congestion , sore throat Cardiac: Reports: chest pain, edema, palpitations (occasionally last week.) Respiratory: Reports: shortness of breath (CAT). Denies: cough (resolved) Gastrointestinal: Reports: no symptoms Genitourinary: Reports: no symptoms Muscolosketal: Reports: joint pain (diffuse chronic joint pain.). Denies: muscle pain Skin: Reports: no symptoms. Denies: change in color, rash Neurological: Reports: no symptoms. Denies: headache, weakness Physical Exam Physical Exam: Selected Entries 08/27/17 19:04 Blood Pressure Automatic Method Heart Rate 84 Respiratory 18 Rate O2 Sat (%) 98 Blood Pressure 159/72 H Mean Arterial 101 H Pressure (MAP) O2 Delivery Room Air Mode Temperature Oral Source Temp Pulse Resp BP Pulse Ox 36.8 C 72 18 166/74 H 95 08/27/17 20:00 08/27/17 22:13 08/27/17 22:13 08/27/17 22:13 08/27/17 22:13 Constitutional: no apparent distress, appears nourished, obese, other (NAD. pleasant obese female appears younger than stated age is sitting up comfortably in bed. cooperative. ), No chronically ill appearing, No unkempt Eyes: PERRL, anicteric sclera, EOMI Ears, Nose, Mouth, Throat: moist mucous membranes (lips dry no cracks), other ( no nasal discharge. ), No poor dentition Cardiovascular: regular rate and rhythym, systolic murmur, pulses symmetric bilaterally, edema (1+ bilateral lower legs. ), No irregularly irregular, No tachycardia Peripheral Pulses: 1+: dorsalis-pedis (R), dorsalis-pedis (L) Respiratory: no respiratory distress, no rales or rhonchi, clear to auscultation Gastrointestinal: normoactive bowel sounds, soft, non-tender abdomen, no palpable masses, other (+ BS. soft, NTTP. obese abdomen.), No rebound, No distension Genitourinary: no bladder tenderness, No campos in urethra Skin: warm, normal color, mottled, No rash Musculoskeletal: full muscle strength, no muscle tenderness, normal joint ROM Neurologic: AAOx3, other (grossly normal. moves all extremities. ), No weakness , No numbness Psychiatric: interacting appropriately, not encephalopathic, thought process linear, anxious (mildly anxious) Lab Data & Imaging Review 08/27/17 19:15 08/27/17 19:15 WBC 8.80 10^3/uL (3.80-9.50) 08/27/17 19:15 RBC 4.90 10^6/uL (4.18-5.33) 08/27/17 19:15 Hgb 14.9 g/dL (12.6-16.3) 08/27/17 19:15 POC Hgb 15.3 gm/dL (12.6-16.3) 08/27/17 19:19 Hct 44.1 % (38.0-47.0) 08/27/17 19:15 POC Hct 45 % (38-47) 08/27/17 19:19 MCV 90.0 fL (81.5-99.8) 08/27/17 19:15 MCH 30.4 pg (27.9-34.1) 08/27/17 19:15 MCHC 33.8 g/dL (32.4-36.7) 08/27/17 19:15 RDW 12.8 % (11.5-15.2) 08/27/17 19:15 Plt Count 322 10^3/uL (150-400) 08/27/17 19:15 MPV 11.3 fL (8.7-11.7) 08/27/17 19:15 Neut % (Auto) 37.8 % (39.3-74.2) L 08/27/17 19:15 Lymph % (Auto) 51.0 % (15.0-45.0) H 08/27/17 19:15 Meade % (Auto) 7.6 % (4.5-13.0) 08/27/17 19:15 Eos % (Auto) 2.6 % (0.6-7.6) 08/27/17 19:15 Baso % (Auto) 0.8 % (0.3-1.7) 08/27/17 19:15 Nucleat RBC Rel Count 0.0 % (0.0-0.2) 08/27/17 19:15 Absolute Neuts (auto) 3.32 10^3/uL (1.70-6.50) 08/27/17 19:15 Absolute Lymphs (auto) 4.49 10^3/uL (1.00-3.00) H 08/27/17 19:15 Absolute Monos (auto) 0.67 10^3/uL (0.30-0.80) 08/27/17 19:15 Absolute Eos (auto) 0.23 10^3/uL (0.03-0.40) 08/27/17 19:15 Absolute Basos (auto) 0.07 10^3/uL (0.02-0.10) 08/27/17 19:15 Absolute Nucleated RBC 0.00 10^3/uL (0-0.01) 08/27/17 19:15 Immature Gran % 0.2 % (0.0-1.1) 08/27/17 19:15 Immature Gran # 0.02 10^3/uL (0.00-0.10) 08/27/17 19:15 POC Sodium 141 mEq/L (134-144) 08/27/17 19:19 Sodium 142 mEq/L (134-144) 08/27/17 19:15 POC Potassium 4.2 mEq/L (3.3-5.0) 08/27/17 19:19 Potassium 4.4 mEq/L (3.5-5.2) 08/27/17 19:15 POC Chloride 102 mEq/L (97-110) 08/27/17 19:19 Chloride 103 mEq/L (97-110) 08/27/17 19:15 Carbon Dioxide 24 mEq/l (22-31) 08/27/17 19:15 Anion Gap 15 mEq/L (8-16) 08/27/17 19:15 POC BUN 16 mg/dL (7-23) 08/27/17 19:19 BUN 13 mg/dL (7-23) 08/27/17 19:15 Creatinine 0.8 mg/dL (0.6-1.0) 08/27/17 19:15 POC Creatinine 0.9 mg/dL (0.6-1.0) 08/27/17 19:19 Estimated GFR > 60 08/27/17 19:15 Glucose 116 mg/dL (70-100) H 08/27/17 19:15 POC Glucose 123 mg/dL (70-100) H 08/27/17 19:19 Calcium 9.8 mg/dL (8.5-10.4) 08/27/17 19:15 Troponin I < 0.012 ng/mL (0.000-0.034) 08/27/17 19:15 NT-Pro-B Natriuret Pep 134 pg/mL (0-125) H 08/27/17 19:15 Imaging Review: Contrast Enhanced CT Scan of the Chest CT (CT Angiography) Clinical History: 62-year-old female with a prior remote history of a PE, presenting to the ED with dyspnea and upper left-sided chest pain. Technique: Following the uncomplicated intravenous administration of 90 mL of Isovue-370 Isovue-370 , a multidetector helical CT scan was obtained from the base of the neck inferiorly to the upper abdomen during peak arterial phase, with images reformatted in soft tissue, lung , liver, and bone windows, and are reformatted at 1.50 mm and 4/3 mm increments. Multiplanar reconstructions were reviewed on the workstation. The DFOV is 37.9 cm. Dose reduction techniques were utilized. Comparison Studies: CTPA, dated 12/13/2016, 04/01/2016, and 11/05/2014. Findings: CT Angiography: The main pulmonary artery, the main right and left pulmonary arteries, and the first and second order pulmonary segments are contrast-opacified, with no filling defect to suggest acute or chronic thromboemboli. There is no interventricular septum deviation, nor is there any reflux of contrast into the intrahepatic IVC. The ascending and descending thoracic aorta, as well as the visualized upper abdominal aorta are normal in caliber, with no aneurysm or dissection. There is a normal anatomic arrangement of the great vessels off of the aortic arch. There are mild LAD and left circumflex coronary artery atherosclerotic calcifications. There is mild stable cardiomegaly. The pericardium is normal. Contrast-Enhanced CT Scan of the Chest: The thyroid gland appears normal. There is a stable noncalcified 6 mm upper lateral right middle lobe nodule (series 6, image 82). The lungs are otherwise clear of infiltrate, atelectasis, or pulmonary nodule. There is no pleural effusion, pneumothorax, or pneumomediastinum. There is no pathologically-enlarged adenopathy. The visualized upper abdomen is notable for a small hiatal hernia, hepatic steatosis, and a prior cholecystectomy. The osseous structures are age-appropriate. Impression: 1. There is no CT evidence of pulmonary artery thromboemboli. 2. Mild cardiomegaly with LAD and left circumflex coronary artery atherosclerotic calcifications. 3. Stable 6 mm noncalcified right middle lobe pulmonary nodule. 4. Small hiatal hernia. 5. Mild generalized hepatic steatosis. 6. Status post cholecystectomy. Findings were discussed with ANITRA MCNAIR MD at 20:30, on 08/27/2017. ___ Ultrasound and Venous Duplex Doppler Study with Color and Spectral Analysis of the Right Lower Extremity Clinical History: 62-year-old female complaining of right calf pain for 3 days with some shortness of breath, and a prior history of a PE. Rule out DVT. Technique: A high frequency transducer was used for imaging and Doppler study of the veins of the right lower extremity. Pulsed Doppler and color Doppler were utilized, along with various maneuvers to assess flow in the veins. Cursory evaluation of the contralateral common femoral vein was obtained for comparison purposes. Comparison Studies: Right lower extremity venous Doppler ultrasound, dated 2014 and 09/06/2014. Findings: The deep veins of the right lower extremity are normally compressible between the groin and the upper calf, and have normal Doppler waveforms. There is no sonographic evidence of deep venous thrombosis (with the comment that the mold cleaner was unable to adequately view the entirety of the right peroneal veins in the proximal portion of the calf with limited color flow assessment; the distal calf peroneal veins were compressible, and color flow is seen with Doppler). The greater saphenous vein is compressible. The popliteal fossa is unremarkable. Impression: There is no sonographic evidence of deep or superficial vein thrombosis in the right lower extremity (with the caveat that there is inadequate assessment of the peroneal veins in the proximal calf). Findings were discussed with ANITRA MCNAIR MD at 20:13, on 08/27/2017. Visualized and Interpreted imaging results: Yes Visualized and Interpreted EKG results: Yes EKG additional interpertation: NSR 60s. QTc 503. no acute ST changes. t wave flattening inferior leads. ekgs from 08/27/17 and 11/2016 reviewed and compared. Assessment & Plan Assessment: Pleasant 62 yo F with multiple medical issues including nonocclusive CAD, recurrent pericarditis, QT prolongation syndrome who presents with complaint of 4 days chest pain. Chest pain (Acute) - ddx including most likely relapse of patient pericarditis this being the 7th time vs. less likely angina vs peluritic cp (with hx recent URI) vs. gerd/esophageal spasm. Patient was admitted overnight in 11/2016 previously for chest pain that was felt due to pericarditis. she was discharged on prednisone and colchicine. Patient with recent completion of course of steroids and reports she will not take colchicine again 2/2 GI side effects. Patient is amenable to trial of toradol but reports reaction to naproxen ( worsening joint pain). She previously tolerated toradol without issues and is currently on 81mg ASA. Will hold off on steroid taper at this time but consider a very slow taper given risk of rebound pericarditis but patient amenable to hold off and trial NSAIDs first. continue NSAID therapy. repeat trop in AM. monitor on tele. Patient without typical si/sx positional improvement of sx, ekg changes, no pericardial effusion on imaging. Additionally patient reports she completed an o/p stress test with Dr. Mtz approximately 8 weeks ago and was noted to be normal per patient. Further discussion with cardiology tomorrow as per day team but given history and if serial enzymes normal patient not likely to require formal consult as plan similar to hospital stay in November. chronic medical issues nonocclusive CAD - continue antihypertensive medications, patient continues on ASA 81mg, ARB. serial enzymes and work up as above. QT prolongation syndrome - will monitor closely. reassured patient that medications will be evaluated and pharmacy also consulted to monitor for any QT prolongating agents before they will be ordered/administered. benign essential HTN - holding diuretic therapy overnight. encourage oral hydration. HLD - intolerant of statin therapy previously per EMR consult note. DM II - holding metformin x 48 hrs s/p contrast Study. hypothyroidism - continue l thyroxine. GERD - continue PPI per formulary. LENORE on CPAP - oxygen overnight morbid obesity (BMI 48.6) - mobilize. lifestyle modifications. hx PE - no longer on anticoagulation. SCDs. lovenox migraine PAGAN - stable at this time. recurrent HSV - continue valtrex daily suppression FEN - patient tolerating PO hydration adequately. electrolyte replacement prn. ADA diet as tolerated. PPX - SCDs. lovenox. COR - FULL Dispo - admit to observation on PCU for close cardiac monitoring and cardiac r/ o.
[2017-08-27] MEDS ORDERED: ACETAMINOPHEN 325 MG TAB PO PRN (22:48)
[2017-08-27] MEDS ORDERED: LORazepam 0.5 MG TAB PO PRN (22:48)
[2017-08-27] MEDS ORDERED: KETOROLAC 15 MG/1 ML SDV IVP ONE (23:14)
[2017-08-28] MEDS: OXYCODONE/APAP 5/325 TAB PO PRN ×2 (00:34→05:49)
[2017-08-28] MEDS ORDERED: LEVOTHYROXINE 100 MCG TAB PO SCH (06:00)
[2017-08-28] MEDS ORDERED: ENOXAPARIN 40 MG/0.4 ML SYR SC SCH (09:00)
[2017-08-28] MEDS ORDERED: valACYclovir 500 MG TAB PO SCH (09:00)
[2017-08-28] MEDS ORDERED: VALSARTAN 40 MG TAB PO SCH (09:00)
[2017-08-28] MEDS ORDERED: ASPIRIN 81 MG CHEWABLE TAB PO SCH (09:00)
[2017-08-28] MEDS ORDERED: PANTOPRAZOLE SODIUM 40 MG TAB PO SCH (09:00)
[2017-08-28] MEDS ORDERED: DOCUSATE SODIUM 100 MG CAP PO SCH (09:00)
[2017-08-28] MEDS ORDERED: SIMETHICONE 80 MG TAB CHEW PO PRN (10:56)
[2017-08-28] MEDS ORDERED: FUROSEMIDE 40 MG TAB PO SCH (11:00)
[2017-08-28 12:24] VITALS: TEMP 97.9
--- NOTE | 2017-08-28 14:49 | ECHO ---
[email or web address] [address] [address] Main: [phone] Fax: Transthoracic Echocardiogram Name: CONRAD ALAN MR#: [id number] Study Date: 08/28/2017 Study Time: 12:46 PM Date of : 1955 Age: 62 year(s) Height: 165.1 cm (65 in.) Weight: 132 kg (291 lb.) BSA: 2.32 m2 Gender: Female Examination: Echo Indication: Pericarditis Image Quality: Contrast: Requested by: Lisa Dawn BP: 126 mmHg/66 mmHg Heart Rate: Rhythm: Indication: Pericarditis Procedure Staff Primer Inspector: Yaneth Gardner Reading Physician: Radha Mtz Requesting Provider: Conclusions: Normal size left ventricle. No LV hypertrophy. Normal global systolic LV function. The ejection fraction is estimated to be 70-75 %. No regional wall motion abnormality. Normal size right ventricle. Normal RV function. The left atirum is borderline dilated. Trivial tricuspid valve regurgitation. The pulmonary artery pressure is normal. No pericardial effusion. Measurements: Chambers Valvular Assessment AV/MV Valvular Assessment TV/PV Normal Normal Normal Name Value Range Name Value Range Name Value Range Ao Rubina (MM): 2.7 cm (2.2 cm-3.7 AV meanP mmHg ( - ) TR Vmax: 2.38 mm/s ( - ) cm) EDMUND (VTI): 1.6 cm ( - ) TR PGmax: 23 mmHg ( - ) IVSd (2D): 1.2 cm (0.6 cm-1.1 MV E Vmax: 1.01 m/s ( - ) syst. PAP: 28 mmHg ( - ) cm) MV A Vmax: 0.88 m/s ( - ) LVDd (2D): 4.1 cm (3.9 cm-5.3 MV E/A: 1.15 ( - ) cm) LVDs (2D): 2.5 cm (2.1 cm-4 cm) LVPWd (2D): 0.8 cm ( - ) LVOTd 1.9 cm 1.9 cm mm LVEF (MOD4): 70 % (>=55 %) EF Range: 70-75 % Continued Measurements: Patient: CONRAD ALAN Study Date: 08/28/2017 Page 1 of 2 12:46 PM Chambers Valvular Assessment AV/MV Valvular Assessment TV/PV Name Value Name Value Name Value LADs: 4.8 cm MV E' Septal: 0.09 m/s CVP (est.): 5 mmHg LADs Lon.8 cm MV E/E' Septal: 10.90 LA Area: 19.8 cm2 MV E/E' Lateral: 11.10 Additional Vessels Name Value Ao Ascendin.0 cm Findings: Left Ventricle: Normal size left ventricle. No LV hypertrophy. Normal global systolic LV function. The ejection fraction is estimated to be 70-75 %. No regional wall motion abnormality. Right Ventricle: Normal size right ventricle. Normal RV function. Left Atrium: The left atirum is borderline dilated. Right Atrium: The right atrium is normal in size. Mitral Valve: Mild mitral annular calcification. Aortic Valve: Minimal aortic cusp calcification is noted. AV max PG is 17mmHG. AV mean PG is 8mmHG.. Tricuspid Valve: The tricuspid valve is normal in appearance and function. Trivial tricuspid valve regurgitation. The pulmonary artery pressure is normal. Pulmonic Valve: The pulmonic valve is normal in appearance and function. Trivial pulmonic valve regurgitation. Aorta: The aorta is normal. Pericardium: No pericardial effusion. There is pericardial fat. (No Signature Object) Patient: CONRAD ALAN Study Date: 08/28/2017 Page 2 of 2 12:46 PM [id number]
[2017-08-28 15:45] VITALS: BP 125/77; PULSE 61; RESP 14; O2SAT 91
--- NOTE | 2017-08-28 17:35 | GDS ---
[f rep st] DISCHARGE SUMMARY DISCHARGE DIAGNOSES: 1. Recurrent pericarditis. 2. Bilateral symmetrical joint pains. 3. Morbid obesity. BMI 48. 4. History of nonobstructive coronary artery disease. 5. Long QT syndrome, status post sympathetic denervation. 6. History of pulmonary embolus. 7. Obstructive sleep apnea on CPAP. 8. Hyperlipidemia, statin intolerant. 9. Pleural effusion, status post VATS. 10. Multiple drug intolerances. HISTORY OF PRESENT ILLNESS: The patient is a 62-year-old female, who has had multiple recurrent admi ssions for chest pain, which has always been consistent with pericarditis. She did have a cardiac ca theterization in 2013 that showed nonobstructive coronary artery disease, and she recently had an out patient stress test with Dr. Mtz only 8 weeks ago that was negative. She re-presented to the hospit al with recurrence of chest pain. Initially, she was concerned that she may have another pulmonary e mbolus, as she had associated shortness of breath and right calf pain. Ultrasound of her leg was neg ative for DVT, and CT angiogram of chest was negative for PE. Her chest pain syndrome was not at all consistent with ischemic pain and much more consistent with an inflammatory pain. There was concern ed that this may be another recurrence of her pericarditis. She has had multiple rounds of prednison e and has also previously been on colchicine. Both of these medications cause intolerable side effec ts. She has also tried multiple NSAIDs in the past and states that they worsen her bilateral severe symmetric joint pains. I consulted with Dr. Mtz, her usual outpatient boiler/chiller operator, and she did not think a cardiac catheterization was indicated, as it was most more consistent with inflammation, and she recommended NSAID therapy. The patient has never tried Celebrex, and we initiated it as an inpa tient, and the patient has good relief of her joint and chest pain. Given her recurrent pericarditis and symmetric persistent severe joint pains, consideration for lupus was entertained. Her sedimenta tion rate, however, is only 11 and her CRP is 14.8, which would argue against a significant autoimmun e etiology. Her rheumatoid factor is negative. CARROLL screen and HIV are pending at discharge, and she can follow up with primary care. Echocardiogram was unremarkable. DISCHARGE MEDICATIONS: Please see computer record for full detailed list. New medications are Celebrex 100-200 mg p.o. twice daily. ADDITIONAL DISCHARGE INSTRUCTIONS: 1. Follow up CARROLL and HIV with primary care. 2. Consider outpatient rheumatology consultation. 3. TIME: Greater than 30 minutes' time was spent arranging this discharge. The patient was seen and ex amined by me on the day of discharge. /[id number]
[2017-08-28] MEDS ORDERED: FUROSEMIDE 40 MG TAB PO PRN (18:00)
[2017-08-29 02:39] LABS: HIV TYPE 1 AND 2 NEGATIVE (NEGATIVE)
[2017-08-29] MEDS ORDERED: SPIRONOLACTONE 50 MG TAB PO SCH (09:00)
== END 2017-08-28 16:18 | disposition home or self-care (01) ==
LOC: F2W 22:19
PROVIDERS: ADMIT Family Medicine; ATTEND Family Medicine
DX: I31.9 Disease of pericardium, unspecified (principal); E66.01 Morbid (severe) obesity due to excess calories; Z68.42 Body mass index [BMI] 45.0-49.9, adult; I25.10 Atherosclerotic heart disease of native coronary artery without angina pectoris; I45.81 Long QT syndrome; R91.1 Solitary pulmonary nodule; G47.33 Obstructive sleep apnea (adult) (pediatric); E78.5 Hyperlipidemia, unspecified; J90 Pleural effusion, not elsewhere classified; M25.50 Pain in unspecified joint; I10 Essential (primary) hypertension; Z86.711 Personal history of pulmonary embolism; E03.9 Hypothyroidism, unspecified; E11.9 Type 2 diabetes mellitus without complications; B00.9 Herpesviral infection, unspecified
CPT/HCPCS: 71275; 93005; 93306; 93971; G0378; 82947-QW; J1650; J1885; Q9967

== ENCOUNTER 2017-08-29 14:51 | Emergency (ER) | payer OTHER ==
--- NOTE | 2017-08-29 15:59 | EDPHY ---
H & P Stated Complaint: GI upset w/black stool last pm after starting celebrex( sensitive to NSAIDS) Time Seen by Provider: 08/29/17 15:21 HPI/ROS: CHIEF COMPLAINT: Abdominal pain, black stool HISTORY OF PRESENT ILLNESS: The patient is a 62 y/o female complaining of abdominal pain and black tarry stool after starting Celebrex 2 days ago for pericarditis. Her medical history includes CAD, hypertension, hyperlipidemia, GERD, and recurrent pericarditis. She was admitted here on 08/27/17 for chest pain and diagnosed with pericarditis after extensive work up. She was discharged on Celebrex, which improved her chest pain. Once home, she developed epigastric abdominal pain and last night had one black tarry stool. A 2nd subsequent stool was dark, but not black. The epigastric pain is moderate and persistent. She takes Nexium for GERD. The chest pain is better, but still present. Prior similar symptoms with NSAID's. She denies fever, vomiting, dyspnea, urinary complaints, or other acute symptoms. REVIEW OF SYSTEMS: Constitutional: No fever, no chills Eyes: No visual changes ENT: No sore throat Respiratory: No cough, no shortness of breath Cardiac: see HPI Gastrointestinal: see HPI Genitourinary: no dysuria Musculoskeletal: No leg pain or swelling Skin: No rash Neurological: No headache Psychiatric: No depression - Personal History Current Tetanus Diphtheria and Acellular Pertussis (TDAP): Yes Tetanus Vaccine Date: 2010 - Medical/Surgical History PMH: PMH includes: 1. Nonocclusive CAD with history cath 2013 2. Hypertension 3. Hyperlipidemia, statin intolerant 4. Hypothyroidism 5. GERD 6. History of QT prolongation syndrome 7. Recurrent pericarditis 8. Morbid obesity, BMI 48 9. History of PE 10. Obstructive sleep apnea on CPAP 11. Pleural effusion status post VATS 12. Multiple drug intolerances PSH includes: 1. Hysterectomy 2. Cholecystectomy 3. Tonsillectomy 4. Right total knee replacement. Prior medical records reviewed including admission 08/27/17 for pericarditis. 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 recurrent pericarditis - Social History Smoking Status: Never smoked Additional Social History: Nonsmoker. Occasional alcohol use. No illicit drug use. Lives alone. Employed. - Physical Exam Exam: General Appearance: Alert, morbidly obese, reading a book comfortably Eyes: Pupils equal and round, no conjunctival pallor ENT, Mouth: Mucous membranes moist Neck: Normal inspection Respiratory: Lungs are clear to auscultation Cardiovascular: Regular rate and rhythm Gastrointestinal: Abdomen is soft with epigastric tenderness Rectal: Brown stool present Neurological: A&O, nonfocal, normal gait Skin: Warm and dry Extremities: Normal inspection Psychiatric: Mood and affect normal Constitutional: Initial Vital Signs Temperature (C) 36.5 C 08/29/17 14:54 Heart Rate 82 08/29/17 14:54 Respiratory Rate 18 08/29/17 14:54 Blood Pressure 160/86 H 08/29/17 14:54 O2 Sat (%) 97 08/29/17 14:54 O2 Delivery Mode Room Air Allergies/Adverse Reactions: ezetimibe [From Zetia] Allergy (Severe, Verified 08/29/17 14:53) Other-Enter Comments tolmetin sodium [From Tolectin] Allergy (Severe, Verified 08/29/17 14:53) clindamycin Allergy (Intermediate, Verified 08/29/17 14:53) Hives colchicine Allergy (Intermediate, Verified 08/29/17 14:53) GI UPSET latex Allergy (Intermediate, Verified 08/29/17 14:53) Itching naproxen [From Naprosyn] Allergy (Intermediate, Verified 08/29/17 14:53) Other-Enter Comments niacin Allergy (Intermediate, Verified 08/29/17 14:53) Rash Penicillins Allergy (Intermediate, Verified 08/29/17 14:53) Rash [id number]-Ijm Reductase Inhibitor Allergy (Intermediate, Verified 08/29/17 14: 53) Other-Enter Comments cefaclor [From Ceclor] Allergy (Mild, Verified 08/29/17 14:53) Rash hydrocodone bitartrate [From Vicodin] Allergy (Mild, Verified 08/29/17 14:53) Rash indomethacin [From Indocin] Allergy (Mild, Verified 08/29/17 14:53) Other-Enter Comments indomethacin sodium [From Indocin] Allergy (Mild, Verified 08/29/17 14:53) Other-Enter Comments levofloxacin [From Levaquin] Allergy (Mild, Verified 08/29/17 14:53) Itching plastic tape Allergy (Mild, Uncoded 08/27/17 19:01) Rash Home Medications: Medication Instructions Recorded Docusate Sodium [Colace 100 MG (*)] 100 mg PO DAILY 12/18/12 ESOMEPRAZOLE MAG TRIHYDRATE 40 mg PO DAILY 12/18/12 [NEXIUM] Levothyroxine [Synthroid 100 mcg 100 mcg PO DAILY06 12/18/12 (*)] Valsartan [Diovan (*)] 80 mg PO DAILY 12/18/12 Spironolactone [Aldactone] 50 mg PO DAILY 10/28/13 valACYclovir [Valtrex (*)] 1,000 mg PO DAILY 09/29/14 Aspirin [Aspirin 81mg (*)] 81 mg PO DAILY 11/25/14 Furosemide [Lasix 40 MG (*)] 40 mg PO DAILY 12/31/15 Herbals/Supplements -Info Only 1 ea PO DAILY 04/01/16 Furosemide [Lasix 40 MG (*)] 40 mg PO MWF@1800 PRN 08/27/17 metFORMIN HCL [Metformin HCl] 500 mg PO BID 08/27/17 celeCOXIB [CeleBREX] 100 - 200 mg PO BID #100 cap 08/28/17 Medical Decision Making ED Course/Re-evaluation: This is a 62 y/o female with recent diagnosis of pericarditis who presents for evaluation of epigastric abdominal pain and black tarry stool after 2 days of Celebrex use. Rectal exam reveals brown stool, occult blood negative, no evidence of GI hemorrhage. GI cocktail given with relief in pain. She will stop taking Celebrex. She will continue Nexium. Mylanta before meals and at bedtime. Differential Diagnosis: Differential diagnosis includes though it is not limited to appendicitis, cholecystitis, diverticulitis, pyelonephritis, bowel perforation, small bowel obstruction. - Data Points Medications Given: Discontinued Medications Al Hydroxide/Mg Hydroxide (Maalox Susp) 30 ml PO ONCE ONE Stop: 08/29/17 16:08 Last Admin: 08/29/17 16:27 Dose: 30 ml Hyoscyamine Sulfate (Levsin, Hyomax-Sl) 0.25 mg PO ONCE ONE Stop: 08/29/17 16:08 Last Admin: 08/29/17 16:27 Dose: 0.25 mg Lidocaine (Lidocaine 2% Viscous) 15 ml PO ONCE ONE Stop: 08/29/17 16:08 Last Admin: 08/29/17 16:27 Dose: 15 ml Departure - Departure Disposition: Home, Routine, Self-Care Clinical Impression: Gastritis Qualifiers: Gastritis type: other gastritis Chronicity: acute Gastritis bleeding: without bleeding Qualified Code(s): K29.00 - Acute gastritis without bleeding Condition: Good Instructions: Antacid, Calcium Containing (By mouth), Gastritis (ED) Additional Instructions: 1. Continue taking Nexium as prescribed 2. Discontinue Celebrex. You can use Tylenol as directed on the packaging for pain if needed for a few days. 3. Use Maalox before meals and at bedtime. 4. Follow up with your primary care provider in 2 days. 5. Return to the ED for worsening of condition. Referrals: Lissett Barrera MD [Primary Care Provider] - As per Instructions Stand Alone Forms: Work Excuse Report Scribed for: Kenia Jimenez Report Scribed by: Misty Cassidy Date of Report: 08/29/17 Time of Report: 16:10 Physician Review and Approval Statement: 08/29/17 16:10 Portions of this note were transcribed by a medical biller/coder. I personally performed a history, physical exam, medical decision making, and confirmed accuracy of information the transcribed note.
[2017-08-29] MEDS ORDERED: LIDOCAINE 2% VISCOUS 15 ML UDCUP PO ONE (16:07)
[2017-08-29] MEDS ORDERED: MAG HYDROX/AL HYDROX/SIMETH 30 ML UDCUP PO ONE (16:07)
[2017-08-29] MEDS ORDERED: HYOSCYAMINE SULFATE 0.125 MG TAB PO ONE (16:07)
[2017-08-29 17:59] VITALS: BP 148/91; PULSE 76; RESP 20; TEMP 98.4; O2SAT 96
== END 2017-08-29 17:59 | disposition home or self-care (01) ==
DX: K29.00 Acute gastritis without bleeding (principal); I10 Essential (primary) hypertension; I25.10 Atherosclerotic heart disease of native coronary artery without angina pectoris; E11.9 Type 2 diabetes mellitus without complications; Z79.82 Long term (current) use of aspirin; Z79.84 Long term (current) use of oral hypoglycemic drugs; Z90.710 Acquired absence of both cervix and uterus; Z90.49 Acquired absence of other specified parts of digestive tract; Z91.040 Latex allergy status

== ENCOUNTER 2017-10-23 10:04 | Emergency (ER) | payer OTHER ==
--- NOTE | 2017-10-23 10:21 | CPEKG ---
Heart Rate: 72 RR Interval: 833 P-R Interval: 172 QRSD Interval: 90 QT Interval: 452 QTC Interval: 495 P [place]: 47 QRS [place]: 21 T Wave [place]: 6 EKG Severity - BORDERLINE ECG - EKG Impression: SINUS RHYTHM EKG Impression: PROBABLE LEFT ATRIAL ABNORMALITY EKG Impression: BORDERLINE PROLONGED QT INTERVAL Electronically Signed By: Kenia Jimenez 23-Oct-2017 15:00:28
--- NOTE | 2017-10-23 10:32 | EDPHY ---
H & P Time Seen by Provider: 10/23/17 10:12 HPI/ROS: CHIEF COMPLAINT: Shortness of breath, cough HISTORY OF PRESENT ILLNESS: 62-year-old female with a history of pulmonary embolism and pericarditis presents with shortness of breath and cough. Onset of exertional shortness of breath 4 days ago, persistent since then. Associated with a feeling of palpitations in her chest. The palpitations cause her to cough. No associated chest pain, URI symptoms or fever. She tripped and fell 5 [place] and [place] on left lower extremity and chest. She was seen in an emergency department and evaluation was unremarkable. 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 Smoking Status: Never smoked Physical Exam: General Appearance: Alert, pleasant, obese Eyes: Pupils equal and round, no conjunctival pallor or injection ENT, Mouth: Mucous membranes moist Neck: Normal inspection Respiratory: Lungs are clear to auscultation Cardiovascular: Regular rate and rhythm, no murmu, gallop or rub Gastrointestinal: Abdomen is soft and nontender Neurological: A&O, nonfocal, normal gait Skin: Warm and dry, no rash Extremities: Nontender, no pedal edema Psychiatric: Mood and affect normal Constitutional: Initial Vital Signs Temperature (C) 36.6 C 10/23/17 10:09 Heart Rate 70 10/23/17 10:09 Respiratory Rate 16 10/23/17 10:09 Blood Pressure 166/77 H 10/23/17 10:09 O2 Sat (%) 94 10/23/17 10:09 O2 Delivery Mode Room Air Allergies/Adverse Reactions: celecoxib [From Celebrex] Allergy (Severe, Verified 10/23/17 10:29) Other-Enter Comments ezetimibe [From Zetia] Allergy (Severe, Verified 08/29/17 14:53) Other-Enter Comments tolmetin sodium [From Tolectin] Allergy (Severe, Verified 08/29/17 14:53) clindamycin Allergy (Intermediate, Verified 08/29/17 14:53) Hives colchicine Allergy (Intermediate, Verified 08/29/17 14:53) GI UPSET latex Allergy (Intermediate, Verified 08/29/17 14:53) Itching naproxen [From Naprosyn] Allergy (Intermediate, Verified 08/29/17 14:53) Other-Enter Comments niacin Allergy (Intermediate, Verified 08/29/17 14:53) Rash Penicillins Allergy (Intermediate, Verified 08/29/17 14:53) Rash Jkmccoe-Hiq-Hgp Reductase Inhibitor Allergy (Intermediate, Verified 08/29/17 14: 53) Other-Enter Comments cefaclor [From Ceclor] Allergy (Mild, Verified 08/29/17 14:53) Rash hydrocodone bitartrate [From Vicodin] Allergy (Mild, Verified 08/29/17 14:53) Rash indomethacin [From Indocin] Allergy (Mild, Verified 08/29/17 14:53) Other-Enter Comments indomethacin sodium [From Indocin] Allergy (Mild, Verified 08/29/17 14:53) Other-Enter Comments levofloxacin [From Levaquin] Allergy (Mild, Verified 08/29/17 14:53) Itching plastic tape Allergy (Mild, Uncoded 08/27/17 19:01) Rash Home Medications: Medication Instructions Recorded Docusate Sodium [Colace 100 MG (*)] 100 mg PO DAILY 12/18/12 ESOMEPRAZOLE MAG TRIHYDRATE 40 mg PO DAILY 12/18/12 [NEXIUM] Levothyroxine [Synthroid 100 mcg 100 mcg PO DAILY06 12/18/12 (*)] Valsartan [Diovan (*)] 80 mg PO DAILY 12/18/12 Spironolactone [Aldactone] 50 mg PO DAILY 10/28/13 valACYclovir [Valtrex (*)] 1,000 mg PO DAILY 09/29/14 Aspirin [Aspirin 81mg (*)] 81 mg PO DAILY 11/25/14 Furosemide [Lasix 40 MG (*)] 40 mg PO DAILY 12/31/15 Herbals/Supplements -Info Only 1 ea PO DAILY 04/01/16 Furosemide [Lasix 40 MG (*)] 40 mg PO MWF@1800 PRN 08/27/17 Medical Decision Making - Diagnostics EKG Interpretation: EKG interpreted by me reveals NSR, rate 72, borderline prolonged QT interval. Interpretation: borderline EKG Imaging Results: CXR: NAD Imaging: I viewed and interpreted images myself ED Course/Re-evaluation: This patient presents with intermittent cough and shortness of breath. As I am interviewing her, the cough clearly coincides with PVC's. She is not ill, CXR is normal and I do not suspect another etiology ot the cough. In regards to the dyspnea, she has a normal respiratory rate and normal O2 saturation at rest. CXR/EKG are unremarkable. h/o prior PE; ddimer is normal today, and I do not feel that this presentation is c/w PE. Oxygen saturation remained 97% on room air while ambulating throughout the emergency department. In addition resp rate remained normal with ambulation. Etiology of dyspnea is unclear, though no objective evidence of acute cardiopulm etiology. I feel that she can be safely discharged home. Encouraged to f/u PCP. Differential Diagnosis: Differential diagnosis includes though it is not limited to pneumonia, pneumothorax, pulmonary embolism, aortic dissection, pericarditis, acute coronary syndrome. - Data Points Laboratory Results: Laboratory Results 10/23/17 10:30 10/23/17 10:30 Departure - Departure Disposition: Home, Routine, Self-Care Clinical Impression: PVCs (premature ventricular contractions) Dyspnea Qualifiers: Dyspnea type: shortness of breath Qualified Code(s): R06.02 - Shortness of breath; R06.00 - Dyspnea, unspecified; R06.01 - Orthopnea Condition: Good Instructions: Dyspnea (ED), Premature Ventricular Contractions (ED) Additional Instructions: Your blood tests, EKG and chest Xray are normal today. Return for worsening symptoms or any concerns. Call you physician to make an appointment. Referrals: Lissett Barrera MD [Primary Care Provider] - 1-2 days without fail Stand Alone Forms: Statement of Treatment
[2017-10-23 10:39] LABS: PLATELET COUNT 269 10^3/uL (150-400)
[2017-10-23 10:53] VITALS: O2SAT 96
[2017-10-23 12:26] VITALS: BP 147/68; PULSE 58; RESP 19; TEMP 98.2
== END 2017-10-23 12:27 | disposition home or self-care (01) ==
DX: I49.3 Ventricular premature depolarization (principal); Z79.82 Long term (current) use of aspirin; Z91.040 Latex allergy status

== ENCOUNTER → 2018-01-16 | Outpatient (CLI) | payer OTHER | LOC: BMCIMAGING 11:05 | PROVIDERS: ATTEND Internal Medicine Rheumatology | DX: M19.042 Primary osteoarthritis, left hand (principal); M19.041 Primary osteoarthritis, right hand; M77.32 Calcaneal spur, left foot; M77.31 Calcaneal spur, right foot ==